=== PATIENT | female | born 1970 | race Caucasian/White ===

== ENCOUNTER → 2025-03-21 10:37 | Outpatient (BNVA) | payer MEDICAID, SELFPAY | PROVIDERS: Visit Provider Nurse Practitioner | DX: E11.9 Type 2 diabetes mellitus without complications (principal); E03.9 Hypothyroidism, unspecified; K74.60 Unspecified cirrhosis of liver; B19.20 Unspecified viral hepatitis C without hepatic coma | CPT/HCPCS: 80053; 80061; 83036; 84443; 85025 ==

== ENCOUNTER 2025-04-04 08:16 | Outpatient (CLI) | payer MEDICAID, SELFPAY ==
--- NOTE | 2025-04-04 07:45 | US_ITS ---
WS: [id number] RIGHT UPPER QUADRANT ULTRASOUND HISTORY: K74.60 - Unspecified cirrhosis of liver COMPARISON: None available. Liver: 16.2 cm in length. Normal size liver. Abnormal echogenicity throughout the liver. There are areas of decreased and increased echogenicity. In the central liver there is a large area of infiltrating low-attenuation. This vessels are not being displaced. Very slight nodularity of the liver surface. Portal Vein: Normal hepatopetal flow with monophasic waveform. Gallbladder: Normally distended gallbladder with no stones or wall thickening. CBD: 0.3 cm Pancreas: Normal size and echogenicity. Right kidney: 9.9 cm in length. Normal size and echogenicity. No hydronephrosis or mass. Aorta and IVC: Mild atherosclerosis. No ascites. US/US liver [id number] IMPRESSION: 1. Abnormal liver. Coarse, heterogeneous echotexture throughout the liver with infiltrating areas of decreased echogenicity. Recommend MRI evaluation of the abdomen with and without contrast to further evaluate the liver. Infiltrating n eoplasm or hepatoma is not excluded on this appearance. 2. No ascites.
== END 2025-04-04 08:17 | disposition home or self-care (01) ==
LOC: RAD 08:16
PROVIDERS: PCP Nurse Practitioner; Visit Provider Nurse Practitioner
DX: K74.60 Unspecified cirrhosis of liver (principal); R93.2 Abnormal findings on diagnostic imaging of liver and biliary tract
CPT/HCPCS: 76705